=== PATIENT | female | born 1955 | race Caucasian/White ===

== ENCOUNTER 2016-11-04 17:30 | Emergency (ER) | payer OTHER ==
[~2016-11-04] VITALS: Ht 170.2 cm; Wt 72.6 kg
--- NOTE | 2016-11-04 18:04 | ED PSYCHIATRIC COMPLAINT ---
History of Present Illness General Chief Complaint: Psychiatric Related Complaint Stated Complaint: DEPRESSION, NO APPETITE -SI/HI Source: patient, family (son over the phone) Exam Limitations: no limitations Allergies Coded Allergies: No Known Allergies (11/04/16) Triage Note: PT STATSE SHE IS HAVING DEPRESSION FOR THE PAST TWO YEARS AND STATES SHE HAS BEEN ON FLUOXETINE AND WAS TOLD TO INCREASE THE PAST TWO DAYS. PT STATES SHE SAW HER DR. YESTERDAY AND STATES SHE IS NOT FEELING BETTER. PT STATES SHE HAS NOT APPETITE. Triage Nurses Notes Reviewed? yes HPI: Patient is a 61-year-old female presents for evaluation of depression. Patient has had depression for approximately 2 years, symptoms increasing over the past 1 week. Depression is currently severe. Minimal appetite for the past 4-5 days. Patient reports an epigastric squeezing discomfort and hunger feeling for the past 3-4 days. Patient saw her primary care doctor yesterday and had her fluoxetine increased from 20 mg to 40 mg. Patient reports that her son lives in [place] that she has no support locally. Patient did not report any other factors contributing to her increasing depression. Patient reports that she smokes cigarettes. Denies alcohol or illicit drug intake. Patient denies suicidal ideation. (ALICE SEARS) Vital Signs & Intake/Output Vital Signs & Intake/Output Vital Signs Date Time Temp Pulse Resp B/P B/P Pulse O2 O2 Flow FiO2 Mean Ox Delivery Rate 11/05 0906 98.5 80 15 159/80 98 Room Air Room Air Reconcile Medications Alprazolam (Unknown Strength) TABLET (Unknown Dose) UNKNOWN (Reported) Fluoxetine HCl 40 MG CAPSULE 1 CAP PO DAILY MENTAL HEALTH (Reported) Mometasone Furoate (Unknown Strength) CREAM..G. (Unknown Dose) UNKNOWN ( Reported) Naproxen 500 MG TABLET 1 TAB PO BID PAIN/INFLAMMATION (Reported) Rosuvastatin Calcium (Crestor) 20 MG TABLET 1 TAB PO DAILY CHOLESTEROL ( Reported) Tramadol HCl 50 MG TABLET 1 TAB PO Q2H PRN PAIN (Reported) (SAMIR GOODRICH,ALEXIA Joe) Past History Travel History Traveled to [place] past 21 day No Medical History Any Pertinent Medical History? see below for history Cardiovascular: hyperlipidemia Musculoskeletal: osteoarthritis Psychiatric: depression, ANXIETY Surgical History Surgical History: non-contributory Psychosocial History What is your primary language Lao Tobacco Use: Current Daily Use ETOH Use: denies use Illicit Drug Use: denies illicit drug use Family History Hx Contributory? No (ALICE SEARS) Review of Systems Review of Systems Constitutional: Denies: chills, fever. EENTM: Reports: no symptoms. Respiratory: Denies: cough, short of breath. Cardiovascular: Denies: chest pain. GI: Reports: see HPI, abdominal pain, nausea. Denies: vomiting. Genitourinary: Reports: no symptoms. Musculoskeletal: Reports: no symptoms. Skin: Reports: no symptoms. Neurological/Psychological: Reports: see HPI. Hematologic/Endocrine: Reports: no symptoms. Immunologic/Allergic: Reports: no symptoms. (ALICE SEARS) Physical Exam Physical Exam General Appearance: well developed/nourished, alert, awake Head: atraumatic, normal appearance Eyes: Bilateral: normal appearance, PERRL, EOMI. Ears, Nose, Throat: normal pharynx, normal ENT inspection, hearing grossly normal Neck: normal inspection, supple, full range of motion Respiratory: normal breath sounds, chest non-tender, no respiratory distress, lungs clear Cardiovascular: regular rate/rhythm Gastrointestinal: normal bowel sounds, soft, non-tender Extremities: normal range of motion Neurological/Psychiatric: awake, alert, depressed affect, tearful. No suicidal or homicidal ideation. No apparent hallucinations. Appearance/Memory/Insight: appropriate appearance Behavoir/Eye Contact/Speech: cooperative Thoughts/Hallucinations: no apparent hallucination Skin: intact, normal color, warm/dry (ALICE SEARS) SAD PERSONS Done? deferred to crisis (SAMIR GOODRICH,ALEXIA Joe) Progress Plan of Care: Orders Procedure Date/time Status URINE DRUG SCREEN FOR ER ONLY 11/04 1817 Active TROPONIN LEVEL 11/04 1817 Active LIPASE 11/04 1817 Active ETHANOL 11/04 1817 Active COMPREHENSIVE METABOLIC PANEL 11/04 1817 Active CBC WITHOUT DIFFERENTIAL 11/04 1817 Active EKG 11/04 1817 Active ED CRISIS PSYCH CONSULT 11/04 1817 Active Patient evaluated by embossing machine tender to remain in the emergency department overnight for reevaluation. Moderate improvement after GI cocktail of epigastric discomfort. Epigastric discomfort for greater than 48 hours, EKG unremarkable, troponin negative. Patient ruled out for acute coronary syndrome. (ALICE SEARS) Comments: 11/04/2016 8:53:03 PM patient's case discussed with the embossing machine tender. She will be reevaluated in the morning due to the possibility of depression. 11/05/2016 7:18:18 AM patient signed out to Dr. Paulino at shift drying rack changer. (SAMIR GOODRICH,ALEXIA Joe) Differential Diagnosis: drug intoxication, drug overdose, drug withdrawal, electrolyte abnormality Comments: Patient has been seen and evaluated by the embossing machine tender. Patient has an outpatient visit scheduled. Patient is stable for discharge. (LILIANE GOODRICH,ALPHONSO Pedro) Departure Departure Condition: Stable Referrals: ANA CALLAHAN MD (PCP/Family) Departure Forms: Customer Survey General Discharge Information (ALICE SEARS) Departure Disposition: HOME OR SELF CARE Clinical Impression Primary Impression: Depression Secondary Impressions: Anorexia, Anxiety Additional Instructions: Take the prescription of Xanax as written by Dr. Callahan. Take Maalox as needed. Follow up with her outpatient appointment as directed. PA/IN FLIGHT REFUELING CRAFTSMAN Co-Sign Statement Statement: ED Attending supervision documentation- [X] I saw and evaluated the patient. I have also reviewed all the pertinent lab results and diagnostic results. I agree with the findings and the plan of care as documented in the PA's/IN FLIGHT REFUELING CRAFTSMAN's documentation. X[X] I have reviewed the ED Record and agree with the PA's/IN FLIGHT REFUELING CRAFTSMAN's documentation. [] Additions or exceptions (if any) to the PAs/IN FLIGHT REFUELING CRAFTSMAN's note and plan are summarized below: [] (LILIANE GOODRICH,ALPHONSO Pedro) Globulin Ratio 1.5, Lipase 42, CBC w Diff NO MAN DIFF REQ, RBC 4.78, MCV 87.6, MCH 29.3, RDW 12.3, MPV 7.2 L, Gran % 71.2, Lymphocytes % 18.7 L, Monocytes % 9.7 H, Eosinophils % 0, Basophils % 0.4, Absolute Granulocytes 7.5 H, Absolute Lymphocytes 2.0, Absolute Monocytes 1.0 H, Absolute Eosinophils 0, Absolute Basophils 0, PUBS MCHC 33.4, Serum Alcohol < 10.0 Comments: 11/04/2016 8:53:03 PM patient's case discussed with the embossing machine tender. She will be reevaluated in the morning due to the possibility of depression. 11/05/2016 7:18:18 AM patient signed out to Dr. Paulino at shift drying rack changer. (SAMIR GOODRICH,ALEXIA Joe) Differential Diagnosis: drug intoxication, drug overdose, drug withdrawal, electrolyte abnormality Comments: Patient has been seen and evaluated by the embossing machine tender. Patient has an outpatient visit scheduled. Patient is stable for discharge. (LILIANE GOODRICH,ALPHONSO Pedro) Departure Departure Condition: Stable Referrals: ANA CALLAHAN MD (PCP/Family) Departure Forms: Customer Survey General Discharge Information (HARISH HENRY,ALICE) Departure Disposition: HOME OR SELF CARE Clinical Impression Primary Impression: Depression Secondary Impressions: Anorexia, Anxiety Additional Instructions: Take the prescription of Xanax as written by Dr. Callahan. Take Maalox as needed. Follow up with her outpatient appointment as directed. (LILIANE GOODRICH,ALPHONSO Pedro)
[2016-11-04] MEDS ORDERED: TRAMADOL HCL50 M1 PO (18:41)
[2016-11-04] MEDS ORDERED: CRESTOR20 M2 PO (18:42)
[2016-11-04] MEDS ORDERED: NAPROXEN500 M2 PO (18:42)
[2016-11-04] MEDS ORDERED: FLUOXETINE HCL40 M1 PO (18:42)
[2016-11-04] MEDS ORDERED: ALPRAZOLAM0.25 M1 (18:43)
[2016-11-04] MEDS ORDERED: MOMETASONE FURO45 GM (18:43)
[2016-11-04 18:44] LABS: ABSOLUTE BASOPHIL COUNT 0 /CUMM (0.0-0.2); ABSOLUTE EOSINOPHIL COUNT 0 /CUMM (0.0-0.7); ABSOLUTE GRANULOCYTE CT 7.5 /CUMM (1.4-6.5); BASOPHIL % 0.4 % (0.0-2.0); EOSINOPHIL % 0 % (0-5); GRANULOCYTE % 71.2 % (42.2-75.2); HEMATOCRIT 41.9 % (37-47); MEAN CORPUSCULAR HGB 29.3 PG (27.0-31.0); MEAN CORPUSCULAR HGB CONC 33.4 G/DL (33.0-37.0); MEAN CORPUSCULAR VOLUME 87.6 FL (81.0-99.0); MEAN PLATELET VOLUME 7.2 FL (7.4-10.4); PLATELET COUNT 347 /CUMM (130-400); RBC DISTRIBUTION WIDTH 12.3 % (11.5-14.5); RED BLOOD CELL CT 4.78 /CUMM (4.20-5.40); WHITE BLOOD CELL COUNT 10.6 /CUMM (4.8-10.8)
--- NOTE | 2016-11-04 21:37 | ED PSYCH CRISIS CONSULTATION ---
Crisis Consult Basic Assessment Date of Consult: 11/04/16 Responsible Person/Accompanied By: Self-presented Insurance Authorization: Insurance #1: Insurance name: [facility] Phone number: Policy number: [id number] Group number: Authorization number: ED Provider: Patient's ED Provider: ALICE SEARS Primary Care Physician: Patient's PCP: ANA CALLAHAN MD PCP's Current Psychiatrist: None Chief Complaint: Psychiatric Related Complaint Patient's Quote: " I have derpession." Present Illness: The patient is a 61 year old, [place]inyar[place] female presenting to the ED with complaints of not being able to eat and worsening depression over the last week. She states that she has not been able to eat and she has been having sleep disturbances. She denies any current or history of SI / HI / AH / VH. She was preoccupied with feeling hungry and not being able to eat, noting she had pain when she tries to eat and that "everything tastes disgusting" to her. She notes that she has had depression for a little while, however reports that it was controlled with Prozac until recently. She is not able to identify any stressors or triggers and is not clear why her symptoms have been getting worse, over the last week. She does state that she has never had trouble eating before and that it is very distressing to her. She has never had any specialized mental health treatment and has been getting her prozac from her PCP. She denies any current or history of drug or alcohol abuse. She lives alone, continues to work and has 2 children (one son in [place] and one son in [place]). She admits to having no local support, however states that she talks to her son in [place] frequently. She denies any history of trauma or abuse. She is unsure of what would be helpful, however states that she would like to be able to eat. JAMAL spoke to her son, Marquise Sorenson ([phone]), who resides in [place]. Marquise notes that he speaks to his mother regularly on Skype and she just visited over Agustin. Marquise states that he has never known his mother to have any mental health issues and in fact did not even know that she had depression until today. She states that his mother called him this AM, tearful to say that she has been depressed and has been taking medications from her PCP. He notes that the plan was to have her retire in a year to a year and a half and then move to [place]. Marquise notes that she can move to [place] sooner, if that will help her. He is not sure if he should fly here, he will call in the AM to see what the plan of care is and what he can do to be helpful. Patient's Address: [address] [place] [address] Other Phone Number: Who Do You Live With? Patient/Self Family/Informants Interviewed: Son- Marquise Sorenson- [phone] Allergies - Coded Allergies: No Known Allergies (11/04/16) Current Medications - Scheduled Medications Fluoxetine HCl 40 MG CAPSULE 1 CAP PO DAILY MENTAL HEALTH #30 (Reported) Entered as Reported by ANDREI JOHN on 11/04/161841 Naproxen 500 MG TABLET 1 TAB PO BID PAIN/INFLAMMATION #60 (Reported) Entered as Reported by ANDREI JOHN on 11/04/161841 Rosuvastatin Calcium (Crestor) 20 MG TABLET 1 TAB PO DAILY CHOLESTEROL #30 ( Reported) Entered as Reported by ANDREI JOHN on 11/04/161841 Scheduled PRN Medications Tramadol HCl 50 MG TABLET 1 TAB PO Q2H PRN PAIN #120 (Reported) Entered as Reported by ANDREI JOHN on 11/04/161840 Miscellaneous Medications Alprazolam (Unknown Strength) TABLET (Unknown Dose) UNKNOWN #30 (Reported) Entered as Reported by ANDREI JOHN on 11/04/161842 Mometasone Furoate (Unknown Strength) CREAM..G. (Unknown Dose) UNKNOWN #45 ( Reported) Entered as Reported by ANDREI JOHN on 11/04/161842 Laboratory Results: Laboratory Tests 11/04/161944: Urine Opiates Screen < 100.00, Methadone Screen < 40, Barbiturate Screen < 60, Ur Phencyclidine Scrn < 6.00, Amphetamines Screen < 100, U Benzodiazepines Scrn < 85, Urine Cocaine Screen < 50, Urine Cannabis Screen < 5.00 11/04/16 1830: Anion Gap 14, Estimated GFR > 60, BUN/Creatinine Ratio 20.0, Glucose 124 H, Calcium 10.0, Total Bilirubin 0.5, AST 27, ALT 39, Alkaline Phosphatase 108, Troponin I < 0.01, Total Protein 7.7, Albumin 4.6, Globulin 3.1, Albumin/ Globulin Ratio 1.5, Lipase 42, CBC w Diff NO MAN DIFF REQ, RBC 4.78, MCV 87.6, MCH 29.3, RDW 12.3, MPV 7.2 L, Gran % 71.2, Lymphocytes % 18.7 L, Monocytes % 9.7 H, Eosinophils % 0, Basophils % 0.4, Absolute Granulocytes 7.5 H, Absolute Lymphocytes 2.0, Absolute Monocytes 1.0 H, Absolute Eosinophils 0, Absolute Basophils 0, PUBS MCHC 33.4, Serum Alcohol < 10.0 (VANESSA DEL CASTILLO,KOFI) Past History Past Medical History Cardiovascular: hyperlipidemia Musculoskeletal: osteoarthritis Psychiatric: depression, ANXIETY Past Surgical History Surgical History: non-contributory Psychosocial History Strengths/Capabilities: The patient has insight into her need for treatment and is motivated to attend. Physical Limitations (Interventions): The patient continues to complain of a pain in her chest / throat and not being able to eat. CARL Alcantar made aware. Psychiatric Treatment History Psych Treatment Psychiatric Treatment No Inpatient Treatment No Outpatient Treatment No Location of Treatment N/A Reason for Treatment N/A Dates of Treatment N/A Response to Treatment N/A Diagnosis by History: The patient states that she has been treated for depression, with Prozac from her primary care doctor. Substance Use/Abuse History Drug Use/Abuse Substances Used/Abused No First Use N/A Last Used N/A How much used/taken N/A How often N/A For how long N/A Route of use N/A Substance Abuse Treatment Substance Abuse Treatment Past Substance Abuse [place] No Inpatient Treatment No Outpatient Treatment No Location of Treatment N/A Reason for Treatment N/A Dates of Treatment N/A Response to Treatment N/A Comments: The patient denies any current or history of drug or alcohol use or abuse. (VANESSA DEL CASTILLO,KOFI) Current Mental Status Mental Status Orientation: Person, Place, Situation Affect: Anxious, Depressed Speech: WNL Neuro-vegetative: Appetite Decreased, Loss of Interest, Sleep Disturbance Appearance Appearance- Dress/Hygiene: The patient was sitting in the chair, in hospital attire, disheveled with good eye contact during the evaluation. Behaviors Thought Process: WNL Thought Content: The patient was preoccupied with her medical symptoms and not being able to eat. She was colmplaining of being very hungry, but stating that food does not taste good, noting she has not eaten in 4 days. Memory: WNL Insight: WNL SI/HI Risk Assessment Past Suicidal Ideation/Attempts No Current Suicidal Ideation/Att No Past Homicidal Ideation/Att: No Current Homicidal Ideation/Attempts No Degree of Intent: None Danger To: Th patient denies any current or history of SI or HI. Gravely Disabled: N/A Risk Factors: lives alone, limited support Lethality Ratin PTSD Checklist PTSD Done? patient declined (Denies trauma history) ED Management Sitter: Yes Restraints: No (KOFI MENDEZ LCSW) DSM5/PS Stressors/Medical Prob Diagnosis' (DSM 5, Stressors, Medical): F32.9 Unspecified Depressive Disorder. Current GAF: 40 Comments: N/A (KOFI MENDEZ LCSW) Departure Disposition Psych Medical Clearance Date: 11/04/16 Medically Cleared at: 1914 Time Started: 1999 Time Ended: 2044 Psychiatrist Consulted: Parish GOODRICH,Van Date Disposition Established: 11/04/16 Time Disposition Established: 2044 Plan for Disposition - Modality: Hold over for reassessment to see how her mood is in AM and if she can eat Contact: N/A Telephone: N/A Rationale for Disposition: The patient presents to the ED with worsening symptoms of depression, over the last week. She states that she has not been able to eat and she has been having sleep disturbances. She denies SI / HI / AH / VH. She was preoccupied with feeling hungry and not being able to eat, noting she had pain when she tries to eat and that "everything tastes disgusting" to her. She notes that she has had depression for a little while, however reports that it was controlled with Prozac until recently. She is not able to identify and triggers and is not clear why symptoms have been getting worse. She does state that she has never had trouble eating before and that it is very distressing to her. Case discussed with Dr. Lugo and CARL Alcantar and the patient will be held over for reassessment in the AM. CARL Wasserman ordered medicine for the patient and she will be monitored overnight to see if she can tolerate eating. Her mental health symptoms will be reassessed in the AM. Additional Instructions: N/A Referrals LONDON GOODRICH,ANA (PCP/Family) (VANESSA DEL CASTILLO,KOFI) Disposition Psych Medical Clearance Date: 11/05/16 Medically Cleared at: 0745 Time Started: 744 Time Ended: 829 Psychiatrist Consulted: Dr. Calhoun Date Disposition Established: 11/05/16 Time Disposition Established: 829 Plan for Disposition - Modality: Outpatient Facility: [facility] Follow-up Appt Date: 11/11/16 Follow-Up Appt Time: 844 Contact: Samia Telephone: [phone] Rationale for Disposition: pt denie and SI and is agreeable to follow-up plan (CECILIO DEL CASTILLO,ELIZABETH) Addendum Addendum Crisis re-evaluated pt this morning and pt presents as tearful and expresses that she is not feeling any better. She expresses that she is so depressed that she cant eat or sleep and feels weak and shaky. Pt says when she tries to eat she throws it up. She reports that her PCP attributes her difficulty eating to her depression and increased her Prozac 2 days ago. Pt reports that she has felt like this for the past 4 days and is so exhausted and weak that she cant function to go to work. Cant you guys give me something to make me feel better so that I can have my energy back. I need an IV or something. Crisis spoke to the ED MD who explained that pts medical work-up was fine and that she is not in need of an IV. Pt expresses that staying overnight in the ED have not brought her any relief and that she wishes to go home. Pt denies any SI/HI/SH or psychosis. This clinician called pts PCP Dr. Callahan and left a message with the answering [phone]. Case reviewed with Dr. Calhoun of psychiatry who recommended that pt be give 20 pill of xanax and an appointment in Out pt. appointment scheduled for 11/11/16 at 8:45am with Samia in [facility] out pt. Dr. Paulino in the ED agreement with given the xanax. Crisis called pt's son and updated him. (CECILIO DEL CASTILLO,ELIZABETH)
[2016-11-05 09:06] VITALS: BP 159/80
== END 2016-11-05 09:21 ==
LOC: ERH 17:30
PROVIDERS: Physician Assistant
DX: F32.9 Major depressive disorder, single episode, unspecified (principal); R63.0 Anorexia; F41.9 Anxiety disorder, unspecified
CPT/HCPCS: 80307; 93005; 93010; G0463; G0480